=== PATIENT | female | born 1985 | race Caucasian/White ===

== ENCOUNTER 2016-05-23 00:48 | Emergency (ER) | payer OTHER ==
--- NOTE | 2016-05-23 00:57 | ER Document Report ---
ED Medical Screen (RME) - General Stated Complaint: NAUSEA Time seen by provider: 00:55 Mode of Arrival: Ambulatory Information source: Patient Notes: 30-year-old female presents to ED for nausea nausea and vomiting she states she is 7 weeks 2 days and she is not able to keep food and fluids down she feels like she is dehydrated. Pressure 110/73 pulse is 92 I have greeted and performed a rapid initial assessment of this patient. A comprehensive ED assessment and evaluation of the patient, analysis of test results and completion of medical decision making process will be conducted by an additional ED providers. TRAVEL OUTSIDE OF THE [place] IN LAST 30 DAYS: No - Related Data Allergies/Adverse Reactions: No Known Allergies Allergy (Unverified 05/21/14 18:45) Past Medical History - Immunizations Hx Diphtheria, Pertussis, Tetanus Vaccination: Yes
[2016-05-23] MEDS ORDERED: METOCLOPRAMIDE HCL 10 MG TABLET PO ONE (00:58)
[2016-05-23] MEDS ORDERED: DIPHENHYDRAMINE HCL 25 MG CAPSULE PO ONE (00:58)
[2016-05-23 01:27] LABS: APPEARANCE,URINE SLIGHTLY-CLOUDY; BILIRUBIN,URINE NEGATIVE (NEGATIVE); GLUCOSE, URINE NEGATIVE (NEGATIVE); KETONES,URINE TRACE mg/dL (NEGATIVE); LEUKOCYTE ESTERASE,URINE NEGATIVE (NEGATIVE); NITRITE,URINE NEGATIVE (NEGATIVE); PROTEIN,URINE NEGATIVE (NEGATIVE); URINE SPECIFIC GRAVITY 1.012; UROBILINOGEN,URINE NEGATIVE mg/dL (<2.0)
[2016-05-23 03:02] VITALS: BP 113/50
== END 2016-05-23 03:45 | disposition left against medical advice (07) ==
LOC: ER 00:48
DX: Z53.9 Procedure and treatment not carried out, unspecified reason (principal); R11.0 Nausea; R11.2 Nausea with vomiting, unspecified
CPT/HCPCS: 81001; 99281